=== PATIENT | female | born 1955 | race Hispanic/Latino ===

== ENCOUNTER → 2024-05-28 | Outpatient (CLI) | payer OTHER, MEDICARE | END | disposition home or self-care (01) | LOC: RAH 11:31 | PROVIDERS: ATTEND Student in an Organized Health Care Education/Training Program | DX: K59.00 Constipation, unspecified (principal); Z90.49 Acquired absence of other specified parts of digestive tract | CPT/HCPCS: 74176 ==

== ENCOUNTER 2025-05-01 07:20 | Emergency (ER) | payer OTHER, MEDICARE ==
[~2025-05-01] VITALS: Ht 154.9 cm; Wt 72.6 kg
--- NOTE | 2025-05-01 07:42 | EKG ---
[facility] Test Date: 2025-05-01 Test Time: 07:29:26 Pat Name: DADA TORRES Department: [facility] Room: Gender: F Director It Project: [id number] : 1955 Requested By: VINOD QUIGLEY Order Number: [id number] Reading MD: Kwasi Abel Measurements Intervals [place] Rate: 80 P: 87 WI: 164 QRS: 11 QRSD: 82 T: 32 QT: 392 QTc: 452 Interpretive Statements Sinus rhythm Nonspecific STT abnormalty Compared to ECG 05/04/2016 17:32:23 T-wave abnormality no longer present Electronically Signed On 05-01-2025 18:28:13 CDT by Kwasi Abel Please click the below link to view image of tracing.
[2025-05-01 08:11] LABS: IMMATURE GRANULOCYTE ABSOLUTE 0.02 K/uL (0-1); NUCLEATED RED BLOOD CELLS 0.0 % (0.0-0.19); PLATELET COUNT (AUTO) 210 K/uL (130-400); RED BLOOD CELL COUNT(AUTO) 4.16 MIL/uL (4.00-5.50); RED CELL DISTRIBUTION WIDTH 13.9 % (11.0-15.5); WHITE BLOOD COUNT (AUTO) 6.3 K/uL (4.8-10.8)
[2025-05-01 08:18] LABS: CREATININE 0.8 mg/dL (0.5-1.0); GLOMERULAR FILTR. RATE CALC 78.0 mL/min (>90); GLUCOSE,RANDOM 159.0 mg/dL (70-105); SODIUM SERUM 141.0 mmol/L (136-145); UREA NITROGEN, BLOOD 15.0 mg/dL (7-18)
--- NOTE | 2025-05-01 09:35 | NUR ---
PATIENT VOICES CHEST PAIN HAS RESOLVED AND IS FEELING BETTER. ED MD AWARE./ARYAN
[2025-05-01] MEDS: NITROGLYCERIN 1GM OINT 1 INCH/1GM TD ONE (09:45)
--- NOTE | 2025-05-01 10:21 | NUR ---
PATIENT AMBULATED TO RESTROOM TO VOID WITH MINIMAL ASSISTANCE, PATIENT THEN AMBULATED DOWN THE MUIR AND BACK TO ROOM WITH PRIMARY RN, NO SIGNS OR SYMPTOMS OF DISTRESS NOTED AT THIS TIME. ED MD HAMLIN./ARYAN
--- NOTE | 2025-05-01 10:38 | ERN ---
ED Note History of Present Illness Stated Complaint: ALLERGIC REACTION Chief Complaint: Allergic Reaction Time Seen by MD: 07:24 Dictation: 70-year-old female presenting to the emergency department after getting anxious and possible allergic reaction in the outpatient setting while receiving Solu- Medrol pretreatment for angiogram with contrast. Patient's blood pressure was elevated and patient felt jittery and was given medicine in the outpatient center but still having symptoms so sent over for evaluation Allergies: Coded Allergies: Iodine (Verified Allergy, Unknown, 05/01/25) Penicillins (Verified Allergy, Unknown, 05/01/25) hydralazine (Unverified Allergy, Unknown, 05/01/25) Past Medical History Past Medical History: High Cholesterol, Hypertension Surgical History: CABG Review of System Dictation Constitutional: Negative for fever,chills, and weight loss Eyes: Negative for injury, pain,redness, and discharge ENT: Negative for injury,pain or swelling Cardiovascular: Negative for chest pain, palpitations, and edema Respiratory: Negative for shortness of breath, cough, and wheezing, Abdomen/GI: Negative for abdominal pain, nausea, vomiting, diarrhea, and constipation Back: Negative for injury and pain : Negative for injury, bleeding and discharge MS/Extremity: Negative for injury and deformity Skin: Negative for rash, and discoloration Neuro: Per HPI Initial Vital Sign VS Vital Signs Date Time Temp Pulse Resp B/P (MAP) Pulse Ox O2 Delivery O2 Flow Rate FiO2 05/01/25 07:25 98.1 85 18 175/75 97 Room Air 0 05/01/25 07:56 21 Physical Exam Dictation General: awake, alert, NAD Head/Face: Normocephalic, atraumatic Eyes: PERRL, EOMI, vision at baseline ENT: oral cavity clear, TMs clear, no signs of infection Neck: Trachea midline, supple, no nuchal rigidity Cardiovascular: RRR, normal S1/S2, No MRGs, no JVD Respiratory: CTAB, no respiratory distress, No rales or wheezes Abdomen: Soft, non-tender, non-distended, normal bowel sounds, no guarding or rebound. Skin: Warm, dry, normal turgor, no rash MS/Extremity: Pulses equal, no cyanosis, neurovascular intact, FROM Neuro: COAx4, GCS 15, strength 5/5, CN 2-12 intact, normal cerebellar exam, normal gait, Psych: Normal behavior, mood, and affect normal Results (Laboratory/Radiology) Laboratory/Radiology Laboratory Tests Test 05/01/25 07:57 White Blood Count 6.3 K/uL (4.8-10.8) Red Blood Count 4.16 MIL/uL (4.00-5.50) Hemoglobin 12.1 g/dL (12.0-16.0) Hematocrit 35.7 % (36-48) L Mean Corpuscular Volume 85.8 fL (79-99) Mean Corpuscular Hemoglobin 29.1 pg (27.0-33.0) Mean Corpuscular Hemoglobin Concent 33.9 g/dL (32.0-36.0) Red Cell Distribution Width 13.9 % (11.0-15.5) Platelet Count 210 K/uL (130-400) Mean Platelet Volume 10.8 fL (7.5-10.5) H Immature Granulocyte % (Auto) 0.3 % (0-1) Neutrophils (%) (Auto) 55.2 % (40.0-77.0) Lymphocytes (%) (Auto) 36.3 % (21.0-51.0) Monocytes (%) (Auto) 4.0 % (3.0-13.0) Eosinophils (%) (Auto) 3.2 % (0.0-8.0) Basophils (%) (Auto) 1.0 % (0.0-5.0) Neutrophils # (Auto) 3.5 K/uL (1.8-7.7) Lymphocytes # (Auto) 2.3 K/uL (1.0-4.8) Monocytes # (Auto) 0.3 K/uL (0.1-1.0) Eosinophils # (Auto) 0.20 K/uL (0.00-0.70) Basophils # (Auto) 0.06 K/uL (0.00-0.20) Absolute Immature Granulocyte (auto 0.02 K/uL (0-1) Nucleated Red Blood Cells 0.0 % (0.0-0.19) Sodium Level 141 mmol/L (136-145) Potassium Level 3.4 mmol/L (3.5-5.1) L Chloride Level 105 mmol/L (101-111) Carbon Dioxide Level 26 mmol/L (21-32) Blood Urea Nitrogen 15 mg/dL (7-18) Creatinine 0.8 mg/dL (0.5-1.0) Glomerular Filtration Rate Calc 78 mL/min (>90) Random Glucose 159 mg/dL (70-105) H Total Calcium 8.8 mg/dL (8.5-10.1) Troponin I High Sensitivity 14 ng/L (4-50) EKG Comment: Heart rate 80 normal sinus rhythm normal intervals ED Course ED Course Orders Procedure Category Date Status Time 12 Lead Ekg Tracing- EKG 05/01/25 Complete Technical 07:25 Cbc With Differential LAB 05/01/25 Complete 07:25 Basic Metabolic Panel LAB 05/01/25 Complete 07:25 Troponin I High LAB 05/01/25 Complete Sensitivity 07:25 Diazepam 5 Mg/Ml 2 Ml PHA 05/01/25 Complete Syg (Valium 5 Mg/M 07:30 Nitroglycerin 1gm PHA 05/01/25 Complete Oint (Nitroglycerin 1g 08:30 Current Medications Medications (Trade) Dose Ordered Sig/[place] Route PRN Reason Start Time Stop Time Status Last Admin Dose Admin Diazepam (VALium 5 MG/ML 2 ML SYG) 5 mg ONCE ONCE IVP 05/01/25 07:30 05/01/25 07:31 DC 05/01/25 08:02 Nitroglycerin (Nitroglycerin 1gm Oint) 0.5 inch ONCE ONCE TD 05/01/25 08:30 05/01/25 08:31 DC 05/01/25 09:45 Vital Signs Date Time Temp Pulse Resp B/P (MAP) Pulse Ox O2 Delivery O2 Flow Rate FiO2 05/01/25 09:31 82 16 175/64 98 Room Air* 0 21 05/01/25 08:30 83 17 154/59 98 Nasal Cannula* 3 32 05/01/25 07:56 98.1 80 18 175/66 98 Room Air* 0 21 05/01/25 07:25 98.1 85 18 175/75 97 Room Air 0 Medical Decision Making MDM MDM: Differential diagnosis: Rationale: Tests considered and ordered secondary to shared decision making include: Previous outside records reviewed: Old ER visits. Risk of complication and/or morbidity or mortality of patient management: None Medications-Per medication reconciliation Need for hospitalization: Patient does not meet criteria for hospitalization. Need for emergency major/minor surgery: No There are no social concerns with this patient. Prescription drug management Prescriptions will include symptomatic care Patient's prior external medical records from other ER visits were reviewed by me as indicated. Prior testing and results from previous visits were reviewed. Prior tests were taken into account with medical decision making and resource utilization, independent historian/historians were used to obtain complete medical history. I independently interpreted the test that were performed, results were reviewed by me and considered findings on radiology if ordered. Medical management and examination interpretation discussions were had by me with other qualified healthcare professionals as indicated for the patient's care. 70-year-old female with agitation status post Solu-Medrol infusion in the outpatient setting was observed here negative workup cardiac workup stable blood pressure has dropped patient feels well ambulates well wants to go home. DX & DISP Disposition: Discharge Departure Impression: Primary Impression: Allergic reaction Additional Impression: Hypertension Condition: Stable Referrals: VEL ABBASI (PCP) VINOD QUIGLEY MD May 01, 2025 10:37
[2025-05-01 10:55] VITALS: BP 179/68; PULSE 88; RESP 17; TEMP 98.2; O2SAT 98
== END 2025-05-01 11:07 | disposition home or self-care (01) ==
LOC: EDH 07:20
DX: T78.40XA Allergy, unspecified, initial encounter (principal); E78.00 Pure hypercholesterolemia, unspecified; I10 Essential (primary) hypertension; Z88.0 Allergy status to penicillin; Z88.8 Allergy status to other drugs, medicaments and biological substances; Z95.1 Presence of aortocoronary bypass graft; X58.XXXA Exposure to other specified factors, initial encounter
CPT/HCPCS: 99285; 96374; 84484; 80048; 85025; 36415; 93005; J3360